=== PATIENT | female | born 1950 | race American Indian/Alaskan Native ===

== ENCOUNTER 2017-02-24 07:14 | Day surgery (SDC) | payer MEDICARE ==
[2017-02-24 08:05] VITALS: BMI 31.3
--- NOTE | 2017-02-24 09:02 | CP.SDSHP ---
Same Day Surgery H & P - History Proposed Procedure: colonoscopy Pre-Op Diagnosis: Personal history of colon polyps - Previous Medical/Surgical History Endocrine/Metabolic: Thyroid Disease Previous Surgical History: C Section - Allergies Allergies: Allergies No Known Allergies Allergy (Verified 02/24/17 08:05) - Current Medications Current Medications: See reconciliation sheet - Physical Exam General Appearance: WD WN female in NAD Vital Signs: Vital Signs 02/24/17 07:56 Temperature 97.6 F Pulse Rate 56 L Respiratory 19 Rate Blood Pressure 144/70 O2 Sat by Pulse 99 Oximetry Mental Status: Alert & Oriented x3 Neuro: WNL Heart: WNL Lungs: WNL GI: WNL - {Optional Preform as Required} Abdomen: WNL - Impression Impression: Personal history of colon polyps Pt. Evaluated Today:Candidate for Anesthesia & Procedure: Yes - Date & Time Date: 02/24/17 Time: 09:03 Short Stay Discharge - Short Stay Discharge Admitting Diagnosis/Reason for Visit: PERSONAL HISTORY OF COLONIC POLYPS Disposition: HOME/ ROUTINE
[2017-02-24] MEDS ORDERED: Lactated Ringer's 500 ML IV ONE ×2 (09:10→10:15)
[2017-02-24] MEDS ORDERED: Propofol 10 mg/ml Inj (20 ML) ONE ×2 (09:12→09:59)
[2017-02-24] MEDS ORDERED: Midazolam 2 MG/2 ML VIAL ONE (09:12)
[2017-02-24 10:40] VITALS: TEMP 97.8; O2SAT 100
[2017-02-24 12:19] VITALS: BP 135/75; PULSE 60; RESP 14
== END 2017-02-24 12:05 | disposition home or self-care (01) ==
LOC: C.ENDO 07:14
PROVIDERS: ATTEND Internal Medicine Gastroenterology
DX: Z12.11 Encounter for screening for malignant neoplasm of colon (principal); D12.3 Benign neoplasm of transverse colon; K63.5 Polyp of colon
CPT/HCPCS: 45381; 45385; 88305; J2250; J2704; J7120

== ENCOUNTER 2018-11-17 12:01 | Outpatient (CLI) | payer MEDICARE | END 2018-11-17 12:02 | disposition home or self-care (01) | LOC: C.DEXAIC 12:01 | DX: M81.0 Age-related osteoporosis without current pathological fracture (principal); Z12.31 Encounter for screening mammogram for malignant neoplasm of breast ==